=== PATIENT | female | born 1990 | race Caucasian/White ===

== ENCOUNTER 2017-04-14 19:15 | Emergency (ER) | payer OTHER ==
[~2017-04-14] VITALS: Ht 162.6 cm; Wt 104.7 kg
[~2017-04-14 19:15] MED LIST: PYRI200T4 PO; Z.0.BCPILL PO; ZOVI800T13 PO
[2017-04-14 19:31] VITALS: BP 146/78; PULSE 79; RESP 18; TEMP 98.2; O2SAT 98
[2017-04-14] MEDS ORDERED: AUGM875T3 PO (21:35)
[2017-04-14] MEDS ORDERED: ALBUAER3 INH (21:35)
[2017-04-14] MEDS ORDERED: TRAM50TA PO (21:53)
--- NOTE | 2017-04-14 21:57 | PD ---
HPI Chief Complaint: ENT Complaint Time Seen by Provider: 21:45 Travel History International Travel<30 days: No Contact w/Intl Traveler<30days: No Traveled to known affect area: No History of Present Illness HPI This patient complains of sinus infection. She completed a course of antibiotics and now is in the middle of the second course of antibiotics. She also took prednisone. She doesn't feel any better. She has pain in the left side of her face. She has some sinus congestion and not a lot of drainage. She 's been referred to ENT but that hasn't happened yet. No fever documented PFSH Past Medical History Asthma: Yes (exercise induced) Diminished Hearing: No Respiratory: Yes Immunizations Current: Yes Tetanus Vaccination: Unknown Influenza Vaccination: No ?: Not LMP: 2 WEEKS Past Surgical History Surgical History: No Previous Surgery Social History Alcohol Use: Yes (occasional) Tobacco Use: No (denies) Substance Use: No Allergies-Medications (Allergen,Severity, Reaction): Coded Allergies: No Known Allergies (Verified Adverse Reaction, Unknown, 04/14/17) Uncoded Allergies: NKA (Allergy, Unknown, 01/04/03) Reported Meds & Prescriptions Reported Meds & Active Scripts Active Tramadol (Tramadol HCl) 50 Mg Tab 50 Mg PO Q6H PRN Reported Proair Hfa 8.5 GM Inh (Albuterol Sulfate) 90 Mcg/Act Aer 1 Puff INH Q4H PRN 108 mcg/actuation Augmentin (Amoxicillin-Clavulanate) 875-125 Mg Tab 1 Tab PO BID Review of Systems Cardiovascular: No: Chest Pain or Discomfort Respiratory: No: Cough Gastrointestinal: No: Vomiting Physical Exam Narrative NECK: Symmetrical appearance, midline trachea. No mass or crepitus. Thyroid without enlargement, tenderness, or mass. TMs and throat clear Has some left-sided maxillary sinus tenderness to percussion Some clear rhinorrhea in the nose SKIN: Focused skin assessment reveals no rash or ulcers. Skin is warm and dry. Palpation shows no induration or nodules. RESPIRATORY: Respiratory effort unlabored, no retractions or use of accessory muscles. Breath sounds are clear and symmetric. Data Data Last Documented VS Vital Signs Date Time Temp Pulse Resp B/P (MAP) Pulse Ox O2 Delivery O2 Flow Rate FiO2 04/14/17 19:31 98.2 79 18 146/78 (100) 98 MDM Medical Decision Making Medical Screen Exam Complete: Yes Emergency Medical Condition: Yes Medical Record Reviewed: Yes Differential Diagnosis Sinusitis, rhinitis, allergic reaction Narrative Course I have reviewed the patient's electronic medical record. I wrote her some pain medication to help symptoms. She requested a work note for tomorrow which we are providing I don't think a third course of antibiotics is indicated here. Diagnosis Primary Impression: Facial pain, acute Additional Instructions: The patient was warned about potential sedation for the medications they will receive on prescription. The patient was advised to follow up with their physician and return if they worsen. Med/Other Pt SpecificInfo: Prescription(s) given Scripts Tramadol (Tramadol) 50 Mg Tab 50 MG PO Q6H Y for PAIN, #20 TAB 0 Refills Prov: Berto Vernon MD 04/14/17 Disposition: 01 DISCHARGE HOME Condition: Stable Berto Vernon MD Apr 14, 2017 21:57
== END 2017-04-14 22:12 | disposition home or self-care (01) ==
LOC: PHED 19:15 → PHEFT 22:12
DX: R51 Headache (principal); J45.909 Unspecified asthma, uncomplicated
CPT/HCPCS: 99283

== ENCOUNTER 2017-09-26 01:17 | Emergency (ER) | payer OTHER ==
[~2017-09-26] VITALS: Ht 162.6 cm; Wt 98.8 kg
[~2017-09-26 01:17] MED LIST changes: +ALBUAER3 INH; +AUGM875T3 PO; -PYRI200T4 PO; +TRAM50TA PO; -Z.0.BCPILL PO; -ZOVI800T13 PO
[2017-09-26 01:19] VITALS: BP 156/86; PULSE 112; RESP 16; TEMP 99; O2SAT 99
[2017-09-26 01:41] VITALS: BP 135/83; PULSE 92; RESP 18; O2SAT 98
[2017-09-26] MEDS ORDERED: ADDE30TA PO (01:41)
--- NOTE | 2017-09-26 02:53 | PD ---
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 She complains of some chest tightness and a pleuritic sensation when she takes a deep breath along with a cough. She denies any fever. She has not undergone any unusual physical activity lately. She does have a history of asthma. She does not have a nebulizer machine at home, she has an albuterol HFA. She denies any sharp chest pain. The patient denies possibility of . PFSH Past Medical History Asthma: Yes (exercise induced) Diminished Hearing: No Respiratory: Yes Immunizations Current: Yes Tetanus Vaccination: Unknown Influenza Vaccination: No ?: Not LMP: 09/01/2017 Past Surgical History Appendectomy: Yes Social History Alcohol Use: Yes (occasional) Tobacco Use: No (denies) Substance Use: No Allergies-Medications (Allergen,Severity, Reaction): Coded Allergies: No Known Allergies (Verified Adverse Reaction, Unknown, 09/26/17) Uncoded Allergies: NKA (Allergy, Unknown, 01/04/03) Reported Meds & Prescriptions Reported Meds & Active Scripts Active Proair Hfa 8.5 GM Inh (Albuterol Sulfate) 90 Mcg/Act Aer 2 Puff INH Q4-6H PRN 108 mcg/actuation Prednisone 50 Mg Tab 50 Mg PO BID Reported Adderall (Amphetamine-Dextroamphetamine) 30 Mg Tab 30 Mg PO DAILY Avoid late evening doses. Space doses at least 4 to 6 hours if more than once/day dosing. Proair Hfa 8.5 GM Inh (Albuterol Sulfate) 90 Mcg/Act Aer 1 Puff INH Q4H PRN 108 mcg/actuation Review of Systems Except as stated in HPI: all other systems reviewed are Neg Physical Exam Narrative GENERAL: The patient is alert, oriented 3 in minimal apparent distress with her chest discomfort. Initial vital signs show blood pressure 156/86 with heart rate of 112, repeat vital signs are normal. SKIN: Focused skin assessment warm/dry. HEAD: Atraumatic. Normocephalic. EYES: Pupils equal and round. No scleral icterus. No injection or drainage. ENT: No nasal bleeding or discharge. Mucous membranes pink and moist. NECK: Trachea midline. No JVD. CARDIOVASCULAR: Regular rate and rhythm. No murmur appreciated. RESPIRATORY: No accessory muscle use. A few very widely scattered wheezes are heard.. Breath sounds equal bilaterally. GASTROINTESTINAL: Abdomen soft, non-tender, nondistended. Hepatic and splenic margins not palpable. MUSCULOSKELETAL: No obvious deformities. No clubbing. No cyanosis. No edema. NEUROLOGICAL: Awake and alert. No obvious cranial nerve deficits. Motor grossly within normal limits. Normal speech. PSYCHIATRIC: Appropriate mood and affect; insight and judgment normal. Data Data Last Documented VS Vital Signs Date Time Temp Pulse Resp B/P (MAP) Pulse Ox O2 Delivery O2 Flow Rate FiO2 09/26/17 03:30 98 18 128/84 (99) 98 Room Air 09/26/17 01:19 99.0 Orders Orders Albuterol-Ipratropium Neb (Duoneb Neb) (09/26/17 03:00) Prednisone (Deltasone) (09/26/17 03:00) [facility] Medical Decision Making Medical Screen Exam Complete: Yes Emergency Medical Condition: Yes Medical Record Reviewed: Yes Differential Diagnosis Acute asthma, bronchitis, pneumonia, pulmonary embolus-highly unlikely, viral syndrome Narrative Course The patient has an acute asthma exacerbation along with a viral syndrome. She needs to rest, drink plenty of liquids and is given a tapered course of prednisone. She is to follow-up with her primary care physician next week. Diagnosis Primary Impression: Acute asthma Additional Impression: Viral syndrome Additional Instructions: As we discussed, the prednisone is taken 1 tablet twice daily for 4 days followed by 1 tablet once daily for 4 days. Follow-up with your primary care physician next week. Med/Other Pt SpecificInfo: Prescription(s) given Scripts Albuterol 8.5 GM Inh (Proair Hfa 8.5 GM Inh) 90 Mcg/Act Aer 2 PUFF INH Q4-6H Y for SHORTNESS OF BREATH, #1 INHALER 0 Refills 108 mcg/actuation Prov: Jl Dick MD 09/26/17 Prednisone (Prednisone) 50 Mg Tab 50 MG PO BID for X 4 days than daily X4 days, #12 TAB 0 Refills Prov: Jl Dick MD 6/1/18 Disposition: 01 DISCHARGE HOME Condition: Stable Jl Dick MD Sep 26, 2017 02:53
[2017-09-26] MEDS: RESP: ALBUTEROL 2.5 MG/IPRATROPIUM 0.5 MG NEB (SCH) INH (02:59)
[2017-09-26] MEDS ORDERED: predniSONE 20 MG TAB PO ONE (03:00)
[2017-09-26 03:30] VITALS: BP 128/84; PULSE 98; RESP 18; O2SAT 98
[2017-09-26] MEDS ORDERED: ALBUAER3 INH (03:36)
[2017-09-26] MEDS ORDERED: PRED50 PO (03:36)
--- NOTE | 2017-09-26 15:00 | EKG ---
Date Performed: 09/26/2017 Time Performed: 01:45:39 PTAGE: 27 years EKG: Sinus rhythm INCOMPLETE RIGHT BUNDLE BRANCH BLOCK BORDERLINE ECG NO PREVIOUS TRACING DOCTOR: Raheel Alexander Interpretating Date/Time 09/26/2017 14:54:38
== END 2017-09-26 03:59 | disposition home or self-care (01) ==
LOC: PHED 01:17
DX: J45.901 Unspecified asthma with (acute) exacerbation (principal); B34.9 Viral infection, unspecified; R94.31 Abnormal electrocardiogram [ECG] [EKG]
CPT/HCPCS: 93005; 94640; 94664; 99283; J7512